=== PATIENT | male | born 1980 | race Caucasian/White ===

== ENCOUNTER 2024-10-20 06:31 | Day surgery (SDC) | payer MEDICAID ==
[2024-10-20] MEDS ORDERED: Propofol 200 MG/20 ML SDV ONE (06:56)
[2024-10-20] MEDS ORDERED: Lidocaine 0.5% 50 ML SDV ONE (06:56)
[2024-10-20] MEDS ORDERED: fentaNYL 100 MCG/2 ML SDV ONE (06:56)
[2024-10-20] MEDS ORDERED: Midazolam 1 MG/ML 2 ML SDV ONE (06:56)
[2024-10-20 07:15] LABS: HEMATOCRIT 41.9 % (38.4-49.7); MEAN CORPUSCULAR HEMOGLOBIN 30.3 pg (31.6-35.5); MEAN CORPUSCULAR HGB CONC 33.4 g/dL (31.6-35.5); MEAN CORPUSCULAR VOLUME 90.7 fL (81.4-99.0); RED BLOOD CELL COUNT 4.62 M/uL (4.14-5.76); WHITE BLOOD CELL COUNT,WBC 5.3 K/uL (3.2-11.0)
[2024-10-20] MEDS: Lactated Ringers 1,000 ML IV SCH (07:17)
[2024-10-20] MEDS: Nozin Nasal Sanitizer NASBOTH ONE (07:32)
[2024-10-20] MEDS: ceFAZolin 1 GM in Premix Bag 1 BAG IV ONE (07:34)
[2024-10-20 07:40] LABS: ANION GAP 10.6 mmol/L (5.0-14.0); CALCIUM 9.1 mg/dL (8.5-10.1); CREATININE 1.3 mg/dL (0.8-1.3); EST CRCL DRUG DOSING (CG) 65.44 mL/min; POTASSIUM,K 3.6 mmol/L (3.6-5.2)
[2024-10-20] MEDS: Bupivacaine 0.5% 30 ML SDV ONE (08:16)
== END 2024-10-20 09:40 | disposition home or self-care (01) ==
LOC: JP.SDS 06:31
PROVIDERS: ATTEND Specialist
DX: G56.01 Carpal tunnel syndrome, right upper limb (principal)
CPT/HCPCS: 01810-QZ; 36415; 64721; 80048; 85027; A9270-GY; J0665; J0689; J2250; J2704; J3010; J7120

== ENCOUNTER 2025-06-22 06:38 | Day surgery (SDC) | payer MEDICAID ==
[2025-06-22 06:54] LABS: PLATELET COUNT,PLT 312 K/uL (130-375); RED BLOOD CELL COUNT 5.19 M/uL (4.14-5.76); WHITE BLOOD CELL COUNT,WBC 5.3 K/uL (3.2-11.0)
[2025-06-22] MEDS ORDERED: Midazolam 1 MG/ML 2 ML SDV ONE (06:59)
[2025-06-22] MEDS ORDERED: Propofol 200 MG/20 ML SDV ONE (06:59)
[2025-06-22] MEDS ORDERED: fentaNYL 100 MCG/2 ML SDV ONE (06:59)
[2025-06-22] MEDS: Nozin Nasal Sanitizer NASBOTH ONE (07:04)
[2025-06-22] MEDS: Lactated Ringers 1,000 ML IV SCH (07:07)
[2025-06-22 07:09] LABS: BLOOD UREA NITROGEN,BUN 16 mg/dL (7-18); CARBON DIOXIDE,CO2 34 mmol/L (21-32); CHLORIDE,CL 104 mmol/L (100-108); CREATININE 1.1 mg/dL (0.8-1.3); ESTIMATED GFR 84 mL/min (>60); GLUCOSE RANDOM 88 mg/dL (74-106); POTASSIUM,K 4.5 mmol/L (3.6-5.2); SODIUM,NA 144 mmol/L (140-148)
[2025-06-22 07:10] LABS: ATYPICAL LYMPHOCYTES FEW; LYMPHOCYTES ABSOLUTE MAN 2.65 K/uL (0.8-3.3); LYMPHOCYTES PERCENT MAN 50 % (24-44); MONOCYTES ABSOLUTE MAN 0.64 K/uL (0.20-0.90); MONOCYTES PERCENT MAN 12 % (2-6); NEUTROPHILS ABSOLUTE MAN 2.01 K/uL (1.0-7.6); SEG NEUTROPHILS PERCENT MAN 38 % (36-66)
[2025-06-22] MEDS: Acetaminophen/oxyCODONE 325-5 MG Tab PO PRN (09:56)
== END 2025-06-22 11:01 | disposition home or self-care (01) ==
LOC: JP.SDS 06:38
PROVIDERS: ATTEND Specialist
DX: G56.02 Carpal tunnel syndrome, left upper limb (principal); F32.A Depression, unspecified; F41.9 Anxiety disorder, unspecified
CPT/HCPCS: 01810-QZ; 36415; 64721; 80048; 85025; A9270-GY; J0665; J0690; J2250; J2704; J3010; J7120